=== PATIENT | female | born 1955 | race Two or more races ===

== ENCOUNTER 2016-04-28 11:17 | Outpatient (CLI) | payer BC ==
[~2016-04-28 11:17] MED LIST: CYAN500T4 PO; ESOM40CA PO; FOLI1TAB16 PO; HYDR200T4 PO; LEVO75TA7 PO; METH2.5T PO; NAPR500T3 PO; SUCR1TAB PO; TRAM50TA2 PO
[2016-04-28 12:50] LABS: BASOPHILS % (AUTO) 0.2 % (0.0-2.0); EOSINOPHILS % (AUTO) 0.5 % (0.0-6.0); HEMATOCRIT 36 % (33-45); HEMOGLOBIN 12.2 g/dL (11.5-14.8); LYMPHOCYTES # (AUTO) 0.5 /CMM (0.8-4.8); LYMPHOCYTES % (AUTO) 9.6 % (20.0-44.0); MEAN CORPUSCULAR HEMOGLOBIN 31 PG (26.0-33.0); MEAN CORPUSCULAR HGB CONC 34 g/dl (31.0-36.0); MEAN CORPUSCULAR VOLUME 91 fL (82-100); MONOCYTES # (AUTO) 0.2 /CMM (0.1-1.30); MONOCYTES % (AUTO) 4.7 % (2.0-12.0); NEUTROPHILS # (AUTO) 4.3 /CMM (1.8-8.9); PLATELET COUNT (AUTO) 267 /CMM (150-450); RED BLOOD CELL COUNT(AUTO) 3.93 MIL/uL (4.0-5.2)
[2016-04-28 12:55] LABS: ADD UA MICROSCOPIC YES; KETONES,URINE NEGATIVE (NEGATIVE); LEUKOCYTE ESTERASE ,URINE NEGATIVE (NEGATIVE)
[2016-04-28 13:03] LABS: CALCIUM, SERUM 8.9 mg/dL (8.5-10.1); CREATININE 0.9 mg/dL (0.6-1.3)
[2016-04-28 13:17] LABS: INR 1.01 (0.87-1.13); PROTHROMBIN TIME 10.9 SECS (9.5-12.7)
[2016-04-28 13:56] LABS: DIFF TOTAL % 100 %
[2016-04-28 13:58] LABS: ADD URINE CULTURE NO; WBC,URINE 0-2 /HPF (0-3)
== END 2016-04-28 23:59 | disposition home or self-care (01) ==
LOC: LAB 11:17
PROVIDERS: ATTEND Family Medicine
DX: D64.9 Anemia, unspecified (principal)
CPT/HCPCS: 80048-TC; 81000-TC; 85025-TC; 85730-TC; 86850-TC

== ENCOUNTER 2016-05-05 10:14 | Day surgery (SDC) | payer BC ==
[2016-05-05] MEDS ORDERED: SUCCINYLCHOLINE CHLORIDE 20 MG/ML VIAL ONE (12:33)
[2016-05-05] MEDS ORDERED: FENTANYL PF 100MCG/2ML AMPUL ONE (12:33)
[2016-05-05] MEDS ORDERED: FERRIC SUBSULFATE 8 GM/VIAL VIAL TP ONE (13:30)
== END 2016-05-05 14:45 | disposition home or self-care (01) ==
LOC: DS 10:14
PROVIDERS: ATTEND Obstetrics & Gynecology
DX: D06.9 Carcinoma in situ of cervix, unspecified (principal); M06.9 Rheumatoid arthritis, unspecified; E66.01 Morbid (severe) obesity due to excess calories
CPT/HCPCS: 57522; 71010; 88305; 88307; 93005; J0330; J3010

== ENCOUNTER 2017-03-19 08:47 | Outpatient (CLI) | payer BC ==
[~2017-03-19 08:47] MED LIST changes: -NAPR500T3 PO; +NAPR500T4 PO
== END 2017-03-19 23:59 | disposition home or self-care (01) ==
LOC: MRI 08:47
PROVIDERS: ATTEND Family Medicine
DX: M19.011 Primary osteoarthritis, right shoulder (principal); M75.81 Other shoulder lesions, right shoulder
CPT/HCPCS: 73221-TC

== ENCOUNTER 2017-09-27 09:29 | Outpatient (CLI) | payer BC ==
[~2017-09-27 09:29] MED LIST changes: +NAPR-1009 PO; -NAPR500T4 PO
[2017-09-27] MEDS ORDERED: GADODIAMIDE 2.5 MMOL/5 ML VIAL IJ ONE (09:30)
[2017-09-27] MEDS ORDERED: GADODIAMIDE 5 MMOL/10 ML VIAL IJ ONE (09:30)
== END 2017-09-27 23:59 | disposition home or self-care (01) ==
LOC: MRI 09:29
PROVIDERS: ATTEND Family Medicine
DX: R51 Headache (principal); R20.9 Unspecified disturbances of skin sensation
CPT/HCPCS: 70553-TC; 72141-TC

== ENCOUNTER 2018-07-20 22:33 | Emergency (ER) | payer BC, OTHER ==
[~2018-07-20] VITALS: Ht 157.5 cm; Wt 81.6 kg
--- NOTE | 2018-07-20 23:10 | NUR ---
BIBFAMILY C/O R FLANK PAIN X 3 WEEKS. DENIES N/V/D. PLACED ON THE MONITOR. UA SAMPLE OBTAINED. WAITING FOR MD STREETER.
[2018-07-20] MEDS ORDERED: KETOROLAC TROMETHAMINE INJ 30 MG/ML VIAL IV ONE (23:30)
[2018-07-20 23:31] LABS: BASOPHILS % (AUTO) 0.7 % (0.0-2.0); EOSINOPHILS % (AUTO) 2.1 % (0.0-6.0); HEMATOCRIT 36 % (33-45); HEMOGLOBIN 12.4 g/dL (11.5-14.8); LYMPHOCYTES # (AUTO) 1.2 /CMM (0.8-4.8); MEAN CORPUSCULAR HGB CONC 35 g/dl (31.0-36.0); MEAN CORPUSCULAR VOLUME 85 fL (82-100); MONOCYTES # (AUTO) 0.4 /CMM (0.1-1.30); NEUTROPHILS # (AUTO) 2.5 /CMM (1.8-8.9); NEUTROPHILS % (AUTO) 59.2 % (43.0-81.0); PLATELET COUNT (AUTO) 277 /CMM (150-450); RED BLOOD CELL COUNT(AUTO) 4.17 MIL/uL (4.0-5.2); WHITE BLOOD COUNT (AUTO) 4.3 K/uL (4.3-11.0)
--- NOTE | 2018-07-20 23:34 | NUR ---
UA AND BLOOD DRAWN, SENT TO LAB. ENDORSED TO [facility] FOR [facility].
[2018-07-20 23:38] LABS: APPEARANCE,URINE Clear (CLEAR); BILIRUBIN,URINE Negative (NEGATIVE); BLOOD, URINE Negative Ery/uL (NEGATIVE); COLOR,URINE Yellow (YELLOW); KETONES,URINE Negative (NEGATIVE); LEUKOCYTE ESTERASE ,URINE Negative (NEGATIVE); NITRITE, URINE Negative (NEGATIVE); PROTEIN,URINE Negative (NEGATIVE); UGLUCOSE Negative (NEGATIVE); UROBILINOGEN,URINE 0.2 EU/dL (0.2)
[2018-07-20 23:39] LABS: CALCIUM, SERUM 8.7 mg/dL (8.5-10.1); CREATININE 0.8 mg/dL (0.6-1.3); POTASSIUM 3.8 mmol/L (3.5-5.1)
[2018-07-20 23:45] LABS: ALBUMIN 4.1 g/dL (3.4-5.0); BILIRUBIN,DIRECT 0.1 mg/dL (0.0-0.2); BILIRUBIN,TOTAL 0.3 mg/dL (0.2-1.0); TOTAL PROTEIN, SERUM 9.1 g/dL (6.4-8.2)
--- NOTE | 2018-07-20 23:47 | NUR ---
PT RETURNED FROM CT. TOERLATED WELL.
--- NOTE | 2018-07-20 23:48 | NUR ---
RADIOLOGY AT BEDSIDE FOR XRAY
[2018-07-20] MEDS ORDERED: KETOROLAC TROMETHAMINE INJ 30 MG/ML VIAL ONE (23:50)
[2018-07-20 23:55] VITALS: BP 143/73
--- NOTE | 2018-07-21 02:26 | NUR ---
IV removed. Catheter intact and site benign. Pressure and 4x4 applied to site. No bleeding noted.Patient discharged to home in stable condition. Written and verbal after care instructions given. Patient verbalizes understanding of instruction. PT AMBULATORY WITH STEADY GAIT.
== END 2018-07-21 02:28 | disposition home or self-care (01) ==
LOC: ER 22:35
DX: M51.34 Other intervertebral disc degeneration, thoracic region (principal); K21.9 Gastro-esophageal reflux disease without esophagitis; G89.29 Other chronic pain; M32.9 Systemic lupus erythematosus, unspecified; M06.9 Rheumatoid arthritis, unspecified; E66.9 Obesity, unspecified; Z98.890 Other specified postprocedural states; Z79.899 Other long term (current) drug therapy; Z68.32 Body mass index [BMI] 32.0-32.9, adult
CPT/HCPCS: 36415; 71045; 74176; 80048; 80076; 81001; 85025; 96374; 99284; J1885; 81000-TC

== ENCOUNTER 2018-10-31 09:51 | Outpatient (CLI) | payer BC ==
[~2018-10-31 09:51] MED LIST changes: -CYAN500T4 PO; +CYAN500T65 PO
== END 2018-10-31 23:59 | disposition home or self-care (01) ==
LOC: CARD 09:51 → MERGE 09:51 → CARD 23:59
PROVIDERS: ATTEND Family Medicine
DX: I34.0 Nonrheumatic mitral (valve) insufficiency (principal)
CPT/HCPCS: 93307-TC

== ENCOUNTER 2019-04-07 11:22 | Outpatient (CLI) | payer BC | END 2019-04-07 23:59 | disposition home or self-care (01) | LOC: RAD 11:22 | PROVIDERS: ATTEND Family Medicine | DX: Z01.818 Encounter for other preprocedural examination (principal); I70.0 Atherosclerosis of aorta; J84.10 Pulmonary fibrosis, unspecified | CPT/HCPCS: 71046 ==

== ENCOUNTER 2019-04-21 05:54 | Inpatient (IN) | payer BC ==
[~2019-04-21] VITALS: Ht 157.5 cm; Wt 82.6 kg
[2019-04-21 06:00] VITALS: BP 138/83
[2019-04-21] MEDS ORDERED: oxyCODONE HCL SR 20MG TAB.SR.12H PO ONE (06:30)
[2019-04-21] MEDS ORDERED: GABAPENTIN 100 MG CAPSULE PO ONE (06:30)
[2019-04-21] MEDS ORDERED: ACETAMINOPHEN 325 MG TABLET PO ONE (06:30)
[2019-04-21] MEDS ORDERED: GABAPENTIN 400 MG CAPSULE PO ONE (06:30)
[2019-04-21] MEDS ORDERED: KETOROLAC TROMETHAMINE INJ 30 MG/ML VIAL IV ONE (06:30)
[2019-04-21] MEDS ORDERED: CELECOXIB 100 MG CAPSULE PO ONE (06:30)
[2019-04-21 06:41] VITALS: BP 138/83
[2019-04-21] MEDS ORDERED: DESFLURANE 240 ML BOTTLE IH ONE (07:10)
[2019-04-21] MEDS ORDERED: PROPOFOL 100 ML ONE ×2 (07:11)
[2019-04-21] MEDS ORDERED: HYDROMORPHONE INJ 2 MG/ML DISP.SYRIN ONE ×2 (07:11→11:16)
[2019-04-21] MEDS ORDERED: ROCURONIUM BROMIDE 50 MG/5 ML ONE (07:11)
[2019-04-21] MEDS ORDERED: LIDOCAINE MPF 1%-EPI 1:200,000 30 ML VIAL IJ ONE (07:29)
[2019-04-21] MEDS ORDERED: BUPIVACAINE 0.5 % PF 150 MG/30 ML VIAL ONE (07:29)
[2019-04-21] MEDS ORDERED: BACITRACIN 50000 UNITS/VIAL ONE (07:29)
[2019-04-21] MEDS ORDERED: CEFAZOLIN 1 GM ONE (07:30)
[2019-04-21] MEDS ORDERED: HEMOSTATIC MATRIX 8 ML 1 EACH PAD MC ONE (07:31)
[2019-04-21] MEDS ORDERED: LEVO100T PO (07:56)
[2019-04-21] MEDS ORDERED: HYDR-3980 PO (07:56)
[2019-04-21] MEDS ORDERED: GABA600T12 PO (07:56)
[2019-04-21] MEDS ORDERED: METF-440 PO (07:56)
[2019-04-21] MEDS ORDERED: OLME5TAB6 PO (07:56)
[2019-04-21] MEDS ORDERED: LANS30CA56 PO (07:56)
[2019-04-21] MEDS ORDERED: PILO5TAB10 PO (07:56)
[2019-04-21] MEDS ORDERED: NAPR500T6 PO (12:41)
[2019-04-21] MEDS ORDERED: UBID200C36 PO (12:41)
[2019-04-21] MEDS ORDERED: ASPI-605 PO (12:41)
[2019-04-21] MEDS ORDERED: OMEG1CAP55 PO (12:41)
[2019-04-21] MEDS ORDERED: ALBU18HF2 IH (12:41)
[2019-04-21] MEDS ORDERED: CYAN10006 IJ (12:41)
[2019-04-21] MEDS ORDERED: MAGN250T10 PO (12:41)
[2019-04-21] MEDS ORDERED: SIMV10TA98 PO (12:41)
[2019-04-21] MEDS: oxyCODONE/APAP (5/325 MG) 1 UDTAB TABLET PO PRN ×3 (13:21→21:03)
[2019-04-21] MEDS: HYDROMORPHONE 1 MG/1 ML DISP.SYRIN IV PRN ×3 (14:26→23:06)
[2019-04-21] MEDS ORDERED: ALBUTEROL SULFATE INH 18 GM HFA.AER.AD IH PRN (15:30)
[2019-04-21] MEDS ORDERED: DEXTROSE 50%-WATER 50 ML DISP.SYRIN IV PRN (15:30)
[2019-04-21] MEDS ORDERED: ALBUTEROL FS 2.5 MG/0.5 ML VIAL.NEB NEB PRN (16:00)
[2019-04-21] MEDS: INSULIN REGULAR, HUMAN 100 UNIT/ML 3 ML VIAL SQ PRN ×2 (17:19→23:16)
[2019-04-21] MEDS: ANCEF 1 GM/50 ML D5W IV SCH ×2 (17:26)
[2019-04-21] MEDS: BLOOD SUGAR DIAGNOSTIC 1 EACH STRIP IN SCH ×2 (18:01→22:46)
[2019-04-21 18:41] VITALS: BP 131/72
[2019-04-21 20:00] VITALS: BP 118/72
[2019-04-21] MEDS ORDERED: SIMVASTATIN 10 MG TABLET PO SCH (22:00)
[2019-04-22] MEDS: ANCEF 1 GM/50 ML D5W IV SCH ×2 (01:50)
[2019-04-22] MEDS: oxyCODONE/APAP (5/325 MG) 1 UDTAB TABLET PO PRN ×2 (02:01→07:37)
[2019-04-22] MEDS: HYDROMORPHONE 1 MG/1 ML DISP.SYRIN IV PRN ×4 (03:57→17:36)
[2019-04-22 06:25] LABS: BASOPHILS % (AUTO) 0.2 % (0.0-2.0); HEMATOCRIT 38 % (33-45); HEMOGLOBIN 12.9 g/dL (11.5-14.8); LYMPHOCYTES # (AUTO) 0.8 /CMM (0.8-4.8); LYMPHOCYTES % (AUTO) 4.8 % (20.0-44.0); MEAN CORPUSCULAR HGB CONC 34 g/dl (31.0-36.0); MEAN CORPUSCULAR VOLUME 85 fL (82-100); MONOCYTES # (AUTO) 1.1 /CMM (0.1-1.30); NEUTROPHILS # (AUTO) 13.8 /CMM (1.8-8.9); PLATELET COUNT (AUTO) 301 /CMM (150-450); WHITE BLOOD COUNT (AUTO) 15.7 K/uL (4.3-11.0)
[2019-04-22] MEDS: BLOOD SUGAR DIAGNOSTIC 1 EACH STRIP IN SCH ×3 (06:49→17:30)
[2019-04-22 06:56] LABS: CALCIUM, SERUM 8.4 mg/dL (8.5-10.1); CREATININE 0.7 mg/dL (0.6-1.3); POTASSIUM 4.3 mmol/L (3.5-5.1)
[2019-04-22] MEDS: INSULIN REGULAR, HUMAN 100 UNIT/ML 3 ML VIAL SQ PRN ×2 (06:57→11:33)
[2019-04-22] MEDS ORDERED: LEVOTHYROXINE SODIUM 100 MCG TABLET PO SCH (07:30)
[2019-04-22 08:00] VITALS: BP 142/76
[2019-04-22] MEDS ORDERED: HYDROXYCHLOROQUINE 200 MG TABLET PO SCH (09:00)
[2019-04-22] MEDS ORDERED: ASPIRIN EC 81 MG TABLET.DR PO SCH (09:00)
[2019-04-22] MEDS ORDERED: METFORMIN 500 MG TABLET PO SCH (09:00)
[2019-04-22] MEDS ORDERED: FOLIC ACID 1 MG TABLET PO SCH (09:00)
[2019-04-22 16:00] VITALS: BP 151/95
== END 2019-04-22 18:07 | disposition home or self-care (01) | DRG 473 ==
LOC: DS 05:54 → MED 05:55
PROC: 0RG20A0 Fusion of 2 or more Cervical Vertebral Joints with Interbody Fusion Device, Anterior Approach, Anterior Column, Open Approach (ICD-10-PCS; principal; 2019-04-21)
PROC: 01N10ZZ Release Cervical Nerve, Open Approach (ICD-10-PCS; principal; 2019-04-21)
PROC: 0RB30ZZ Excision of Cervical Vertebral Disc, Open Approach (ICD-10-PCS; principal; 2019-04-21)
DX: M50.122 Cervical disc disorder at C5-C6 level with radiculopathy (principal); M48.02 Spinal stenosis, cervical region; E11.9 Type 2 diabetes mellitus without complications; G89.29 Other chronic pain; I10 Essential (primary) hypertension; M06.9 Rheumatoid arthritis, unspecified; K29.70 Gastritis, unspecified, without bleeding; J44.9 Chronic obstructive pulmonary disease, unspecified; E66.01 Morbid (severe) obesity due to excess calories; E03.9 Hypothyroidism, unspecified; Z87.891 Personal history of nicotine dependence; M50.123 Cervical disc disorder at C6-C7 level with radiculopathy
CPT/HCPCS: 36415; 72040-TC; 80048-TC; 82962-TC; 85025-TC; 87081-TC; 88304-TC; 88311-TC; 97116-TC; 97530-TC; G0378; J0690; J1170; J1815; J3490; J7050; J7060

== ENCOUNTER 2019-06-05 12:10 | Outpatient (CLI) | payer BC ==
[~2019-06-05 12:10] MED LIST changes: +ALBU18HF2 IH; +ASPI-605 PO; +CYAN10006 IJ; -CYAN500T65 PO; -ESOM40CA PO; +HYDR-3980 PO; +LEVO100T PO; -LEVO75TA7 PO; +MAGN250T10 PO; +METF-440 PO; -METH2.5T PO; -NAPR-1009 PO; +NAPR500T6 PO; +OMEG1CAP55 PO; +SIMV10TA98 PO; -SUCR1TAB PO; -TRAM50TA2 PO; +UBID200C36 PO
== END 2019-06-05 23:59 | disposition home or self-care (01) ==
LOC: MRI 12:10
PROVIDERS: ATTEND Family Medicine
DX: M16.12 Unilateral primary osteoarthritis, left hip (principal)
CPT/HCPCS: 73721-TC

== ENCOUNTER 2019-08-27 10:42 | Outpatient (CLI) | payer BC | END 2019-08-27 23:59 | disposition home or self-care (01) | LOC: MRI 10:42 | PROVIDERS: ATTEND Family Medicine | DX: M19.012 Primary osteoarthritis, left shoulder (principal); M75.122 Complete rotator cuff tear or rupture of left shoulder, not specified as traumatic; M75.92 Shoulder lesion, unspecified, left shoulder; M75.91 Shoulder lesion, unspecified, right shoulder | CPT/HCPCS: 73221-TC ==

== ENCOUNTER 2019-10-28 09:28 | Outpatient (CLI) | payer BC | END 2019-10-28 23:59 | disposition home or self-care (01) | LOC: MRI 09:28 | PROVIDERS: ATTEND Family Medicine | DX: M47.817 Spondylosis without myelopathy or radiculopathy, lumbosacral region (principal); M43.16 Spondylolisthesis, lumbar region; M48.05 Spinal stenosis, thoracolumbar region; M48.07 Spinal stenosis, lumbosacral region; M17.12 Unilateral primary osteoarthritis, left knee; M25.462 Effusion, left knee; D18.09 Hemangioma of other sites | CPT/HCPCS: 72148-TC; 73721-TC ==